=== PATIENT | female | born 1950 | race Caucasian/White ===

== ENCOUNTER 2019-09-16 16:54 | Inpatient (IN) | payer OTHER, MEDICAID ==
[~2019-09-16] VITALS: Ht 167.6 cm; Wt 68.0 kg
[2019-09-16 17:25] VITALS: Ht 167.6 cm; Wt 68.0 kg
[2019-09-16 18:01] LABS: BASOPHIL % 1.5 % (0-2); PLATELET COUNT 185 x10^3mcL (130-400)
[2019-09-16 18:02] LABS: RED CELL DISTRIBUTION WIDTH 16.4 % (11.5-14.5)
[2019-09-16 18:24] LABS: CARBON DIOXIDE 27.2 mmol/L (21-32); CREATININE SERUM 1.3 mg/dL (0.6-1.0); POTASSIUM SERUM 4.4 mmol/L (3.5-5.1)
[2019-09-16 18:29] LABS: BILIRUBIN TOTAL 0.5 mg/dL (0.20-1.00)
[2019-09-16 18:30] LABS: ALBUMIN 3.2 g/dL (3.4-5.0)
[2019-09-16 22:12] VITALS: BP 155/83
[2019-09-17 06:52] LABS: BASOPHIL % 0.3 % (0-2); PLATELET COUNT 149 x10^3mcL (130-400)
[2019-09-17 06:54] LABS: RED CELL DISTRIBUTION WIDTH 15.9 % (11.5-14.5)
[2019-09-17 07:01] LABS: CALCIUM 8.3 mg/dL (8.5-10.1); CARBON DIOXIDE 26.6 mmol/L (21-32); CREATININE SERUM 1.1 mg/dL (0.6-1.0)
[2019-09-17 07:03] VITALS: BP 165/82
[2019-09-17 08:13] VITALS: BP 138/75
[2019-09-17 12:12] VITALS: BP 149/75
[2019-09-17 16:58] VITALS: BP 161/74
[2019-09-17 21:40] VITALS: BP 172/92
[2019-09-18 05:27] VITALS: BP 138/67
[2019-09-18 07:56] VITALS: BP 146/82
[2019-09-18 08:34] VITALS: BP 161/91
[2019-09-18 11:58] VITALS: BP 150/91
[2019-09-18] MEDS ORDERED: METOPROLOL TART25 M1 PO (16:49)
[2019-09-18] MEDS ORDERED: PANTOPRAZOLE SO40 M1 PO (16:50)
[2019-09-18 16:51] VITALS: BP 146/96
[2019-09-18] MEDS ORDERED: CARAFATE1 GM PO (16:52)
[2019-09-18 16:57] VITALS: BP 146/96
== END 2019-09-18 17:27 | disposition home or self-care (01) | DRG 392 ==
LOC: ED 16:54 → MU 20:19
PROVIDERS: Emergency Medicine; Internal Medicine; ADMIT Internal Medicine Pulmonary Disease
PROC: 0DB68ZX Excision of Stomach, Via Natural or Artificial Opening Endoscopic, Diagnostic (ICD-10-PCS; 2019-09-17)
PROC: 0DB98ZX Excision of Duodenum, Via Natural or Artificial Opening Endoscopic, Diagnostic (ICD-10-PCS; principal; 2019-09-17 11:00)
DX: K52.9 Noninfective gastroenteritis and colitis, unspecified (principal); K29.70 Gastritis, unspecified, without bleeding; K29.80 Duodenitis without bleeding; R11.10 Vomiting, unspecified; R19.7 Diarrhea, unspecified; R63.4 Abnormal weight loss; D49.0 Neoplasm of unspecified behavior of digestive system; I12.9 Hypertensive chronic kidney disease with stage 1 through stage 4 chronic kidney disease, or unspecified chronic kidney disease; N18.3 Chronic kidney disease, stage 3 (moderate); M06.9 Rheumatoid arthritis, unspecified; Z68.24 Body mass index [BMI] 24.0-24.9, adult; Z90.49 Acquired absence of other specified parts of digestive tract
CPT/HCPCS: 43235; C9113; G0378; J1200; J1610; J2250; J2270; J2310; J2405; J3010; J3490; J7030; J7042; Q0092

== ENCOUNTER 2019-10-14 15:06 | Inpatient (IN) | payer OTHER, MEDICAID ==
[~2019-10-14] VITALS: Ht 167.6 cm; Wt 63.5 kg
[~2019-10-14 15:06] MED LIST: CARAFATE1 GM PO; METOPROLOL TART25 M1 PO; PANTOPRAZOLE SO40 M1 PO
[2019-10-14 15:16] VITALS: Ht 167.6 cm; Wt 63.5 kg
[2019-10-14 16:19] LABS: PLATELET COUNT 203 x10^3mcL (130-400)
[2019-10-14 16:29] LABS: RED CELL DISTRIBUTION WIDTH 18.3 % (11.5-14.5)
[2019-10-14 16:50] LABS: CALCIUM 9.1 mg/dL (8.5-10.1); CARBON DIOXIDE 26.3 mmol/L (21-32); CREATININE SERUM 1.2 mg/dL (0.6-1.0); POTASSIUM SERUM 4.2 mmol/L (3.5-5.1)
[2019-10-14 17:08] LABS: TOTAL PROTEIN, SERUM 6.6 g/dL (6.4-8.2)
[2019-10-14 17:15] LABS: ALBUMIN 2.5 g/dL (3.4-5.0)
[2019-10-14 17:16] LABS: BILIRUBIN TOTAL 25.5 mg/dL (0.20-1.00)
[2019-10-14 17:21] LABS: microscopic required? YES; urine erythrocyte NEGATIVE (NEGATIVE)
[2019-10-14 17:31] LABS: BAND NEUTROPHIL 1 % (0-10); BASOPHIL 0 % (0-2); MONOCYTE 2 % (0-7); SEGMENTED NEUTROPHILS 92 % (37-75); rbc morphology (normal/abnorm) ABNORMAL (NORMAL); target cell (codocyte) 1+
[2019-10-14 17:32] LABS: PLATELET MORPHOLOGY PLATELETS NORMAL
[2019-10-14 21:14] VITALS: BP 176/76
[2019-10-15 04:52] VITALS: BP 166/70
[2019-10-15 05:46] LABS: ALBUMIN 1.9 g/dL (3.4-5.0); CALCIUM 8.4 mg/dL (8.5-10.1); CARBON DIOXIDE 25.8 mmol/L (21-32); POTASSIUM SERUM 3.8 mmol/L (3.5-5.1); TOTAL PROTEIN, SERUM 5.2 g/dL (6.4-8.2)
[2019-10-15 05:48] VITALS: BP 150/65
[2019-10-15 05:52] LABS: BILIRUBIN TOTAL 23.94 mg/dL (0.20-1.00)
[2019-10-15 06:02] LABS: PLATELET COUNT 194 x10^3mcL (130-400)
[2019-10-15 06:05] LABS: RED CELL DISTRIBUTION WIDTH 18.6 % (11.5-14.5)
[2019-10-15 06:06] LABS: BASOPHIL % 0.1 % (0-2)
[2019-10-15 08:42] VITALS: BP 144/62
[2019-10-15 14:30] VITALS: BP 137/63
[2019-10-15 17:35] VITALS: BP 138/66
[2019-10-15 21:10] VITALS: BP 142/61
[2019-10-16 06:06] VITALS: BP 138/59
[2019-10-16 06:23] LABS: PLATELET COUNT 178 x10^3mcL (130-400)
[2019-10-16 06:54] LABS: BILIRUBIN TOTAL 8.9 mg/dL (0.20-1.00); CALCIUM 7.9 mg/dL (8.5-10.1); CARBON DIOXIDE 25.4 mmol/L (21-32); CREATININE SERUM 1.1 mg/dL (0.6-1.0); MAGNESIUM 1.8 mg/dL (1.8-2.4); POTASSIUM SERUM 3.7 mmol/L (3.5-5.1)
[2019-10-16 07:14] LABS: RED CELL DISTRIBUTION WIDTH 18.2 % (11.5-14.5)
[2019-10-16 07:46] LABS: ALBUMIN 1.8 g/dL (3.4-5.0); TOTAL PROTEIN, SERUM 5.3 g/dL (6.4-8.2)
[2019-10-16 08:36] VITALS: BP 150/79
[2019-10-16 11:12] LABS: MONOCYTE 7 % (0-7); SEGMENTED NEUTROPHILS 81 % (37-75)
[2019-10-16 11:14] LABS: BAND NEUTROPHIL 2 % (0-10)
[2019-10-16 11:16] LABS: rbc morphology (normal/abnorm) ABNORMAL (NORMAL)
[2019-10-16 11:19] LABS: target cell (codocyte) 2+
[2019-10-16 12:05] VITALS: BP 143/61
[2019-10-16 15:51] VITALS: BP 141/58
[2019-10-16 21:14] VITALS: BP 126/66
[2019-10-17 05:15] VITALS: BP 152/72
[2019-10-17 06:39] LABS: PLATELET COUNT 180 x10^3mcL (130-400)
[2019-10-17 07:04] LABS: ALT/SGPT 163 U/L (14-59); AST/SGOT 39 U/L (15-37); BILIRUBIN TOTAL 7.28 mg/dL (0.20-1.00); CALCIUM 8.3 mg/dL (8.5-10.1); CARBON DIOXIDE 24.5 mmol/L (21-32); CHLORIDE SERUM 107 mmol/L (98-107); CREATININE SERUM 0.9 mg/dL (0.6-1.0); GFR1 > 60 mL/min; GLUCOSE SERUM 174 mg/dL (74-106); MAGNESIUM 1.7 mg/dL (1.8-2.4); POTASSIUM SERUM 3.1 mmol/L (3.5-5.1); SODIUM SERUM 139 mmol/L (136-145)
[2019-10-17 07:20] LABS: ALBUMIN 1.8 g/dL (3.4-5.0); TOTAL PROTEIN, SERUM 5.4 g/dL (6.4-8.2)
[2019-10-17 07:44] LABS: RED CELL DISTRIBUTION WIDTH 18.6 % (11.5-14.5)
[2019-10-17 08:14] VITALS: BP 147/60
[2019-10-17 11:56] LABS: ALKALINE PHOSPHATASE 1389 U/L (46-116)
[2019-10-17 12:06] VITALS: BP 153/72
[2019-10-17 12:23] LABS: BAND NEUTROPHIL 2 % (0-10); MONOCYTE 8 % (0-7); SEGMENTED NEUTROPHILS 81 % (37-75)
[2019-10-17 12:24] LABS: PLATELET MORPHOLOGY LARGE PLATELET SEEN; rbc morphology (normal/abnorm) ABNORMAL (NORMAL); target cell (codocyte) 2+
[2019-10-17 16:37] VITALS: BP 134/58
[2019-10-17 19:22] VITALS: BP 142/63
[2019-10-18 04:05] VITALS: BP 151/72
[2019-10-18 07:02] LABS: PLATELET COUNT 179 x10^3mcL (130-400)
[2019-10-18 07:07] LABS: BILIRUBIN TOTAL 5.7 mg/dL (0.20-1.00); CALCIUM 8.5 mg/dL (8.5-10.1); CARBON DIOXIDE 24.9 mmol/L (21-32); CREATININE SERUM 1.1 mg/dL (0.6-1.0); MAGNESIUM 1.6 mg/dL (1.8-2.4); POTASSIUM SERUM 4.3 mmol/L (3.5-5.1)
[2019-10-18 07:46] LABS: RED CELL DISTRIBUTION WIDTH 18.2 % (11.5-14.5)
[2019-10-18 07:57] VITALS: BP 150/66
[2019-10-18 07:57] LABS: ALBUMIN 1.9 g/dL (3.4-5.0); TOTAL PROTEIN, SERUM 5.5 g/dL (6.4-8.2)
[2019-10-18] MEDS ORDERED: ZOFRAN8 MG PO (10:54)
[2019-10-18] MEDS ORDERED: PROTONIX TR40 M1 PO (10:55)
[2019-10-18 11:45] VITALS: BP 150/60
[2019-10-18 11:47] VITALS: BP 135/83
[2019-10-18 15:57] VITALS: BP 135/83
[2019-10-18 16:25] VITALS: BP 141/69
== END 2019-10-18 19:20 | DRG 438 ==
LOC: ED 15:06 → MU 18:19
PROVIDERS: Emergency Medicine; Internal Medicine; Internal Medicine Pulmonary Disease; ADMIT Internal Medicine Pulmonary Disease
PROC: 0F798DZ Dilation of Common Bile Duct with Intraluminal Device, Via Natural or Artificial Opening Endoscopic (ICD-10-PCS; principal; 2019-10-15 10:00)
PROC: BF11YZZ Fluoroscopy of Biliary and Pancreatic Ducts using Other Contrast (ICD-10-PCS; 2019-10-15 10:00)
DX: K86.9 Disease of pancreas, unspecified (principal); K83.1 Obstruction of bile duct; B17.9 Acute viral hepatitis, unspecified; N39.0 Urinary tract infection, site not specified; K85.90 Acute pancreatitis without necrosis or infection, unspecified; K86.81 Exocrine pancreatic insufficiency; K21.9 Gastro-esophageal reflux disease without esophagitis; M06.9 Rheumatoid arthritis, unspecified; I12.9 Hypertensive chronic kidney disease with stage 1 through stage 4 chronic kidney disease, or unspecified chronic kidney disease; E11.22 Type 2 diabetes mellitus with diabetic chronic kidney disease; N18.9 Chronic kidney disease, unspecified; I25.10 Atherosclerotic heart disease of native coronary artery without angina pectoris; Z95.5 Presence of coronary angioplasty implant and graft; Z68.20 Body mass index [BMI] 20.0-20.9, adult; Z79.84 Long term (current) use of oral hypoglycemic drugs
CPT/HCPCS: 43262; 97110-GP; 97530-GP; C1727; C1769; C2625; C9113; G0378; J1170; J1610; J1956; J2175; J2250; J2270; J2405; J3010; J3430; J3480; J3490; J7042; Q0092; Q9967